=== PATIENT | female | born 1950 | race Caucasian/White ===

== ENCOUNTER → 2016-06-06 | Outpatient (CLI) | payer OTHER ==
[~2016-06-06] MED LIST: CIPR-255 PO; ERGO1TAB12 PO; GADAVIST IV PRN; IBUP-103 PO; LOSA25TA18 PO; OMEG10007 PO; RED1CAP5 PO
--- NOTE | 2016-06-06 09:40 | DIAGNOSTIC IMAGING REPORT ---
Brain MRA HISTORY: H93.A9 Pulsatile [id number] TECHNIQUE: 3-D [id number] MRA of the brain was performed without contrast. COMPARISON STUDY: None. FINDINGS: Visualized intracranial internal carotid arteries, distal vertebral arteries, and basilar artery are widely patent. There is no significant stenosis, occlusion, or aneurysm seen within the bilateral ACAs, MCAs, or recycling worker. The distal right vertebral artery is slightly hypoplastic and terminates in the right posterior inferior cerebellar artery. Hypoplastic left P1 segment. The left REGULATORY AFFAIRS INTERN is fed primarily through the left posterior communicating artery. The right A1 segment is also absent. The right CRICKET is fed through the anterior communicating artery. IMPRESSION: No significant stenosis, occlusion, or aneurysm within the quechan of [place]. Electronically signed by: Jose David Perry M.D. 06/06/2016 9:38 AM Dictated Date/Time: 06/06/2016 9:24 AM
--- NOTE | 2016-06-06 10:06 | DIAGNOSTIC IMAGING REPORT ---
MRI OF THE BRAIN COMBO INTERNAL AUDITORY CANAL PROTOCOL CLINICAL HISTORY: Pulsatile tinnitus. COMPARISON STUDY: CT of the brain dated 10/26/2012. TECHNIQUE: MRI of the brain was performed utilizing various T1 and T2-weighted sequences in the axial, sagittal, and coronal planes. Contrast-enhanced sequences were acquired following the administration of 7.5 cc of Gadavist. Additional high-resolution imaging was performed through the skull base both pre and post contrast to assess the internal auditory canals. FINDINGS: Brain parenchyma: There is minimal patchy subcortical and periventricular microangiopathic change. The brain parenchyma is otherwise normal in appearance. There is no hemorrhage or mass effect. There is no restricted diffusion to suggest acute ischemia. No enhancing mass lesion is identified on the postcontrast images. Kirby-white matter differentiation is preserved. No extra-axial fluid collection is seen. The cerebellar tonsils are normal in configuration. Ventricles, sulci, and cisterns: Normal in configuration. Internal auditory canals: There is no enhancing mass lesion identified within the cerebellopontine angles. No mass lesion or abnormal enhancement is identified along the course of the internal auditory canals. The middle ear structures are normal as visualized. Pituitary and sella: Unremarkable. Intracranial vasculature: Normal flow voids are maintained at the skull base. Orbits: The bony orbits are grossly intact. Orbital contents are normal in appearance. Sinuses and mastoids: There is a retention cyst in the right maxillary antrum. Trace mucosal thickening is noted in the maxillary antra. Remaining paranasal sinuses and the mastoid air cells are clear. Calvarium: Unremarkable. Cervical cord: Partially visualized cervical spinal cord is normal in morphology and signal intensity. IMPRESSION: 1. No acute intracranial abnormal. 2. Unremarkable MRI assessment of the internal auditory canals. Electronically signed by: Tim Berry M.D. 06/06/2016 10:05 AM Dictated Date/Time: 06/06/2016 9:54 AM
--- NOTE | 2016-06-06 10:45 | DIAGNOSTIC IMAGING REPORT ---
ULTRASOUND OF THE CAROTID ARTERIES CLINICAL HISTORY: Pulsatile tinnitus. COMPARISON STUDY: No priors. TECHNIQUE: Real-time, grayscale, and color Doppler sonography of the carotid arteries is performed. Images are reviewed in the transverse and longitudinal planes. FINDINGS: Blood pressure in the right arm measures 139/70 and blood pressure in the left arm measures 142/62. The carotid arteries are patent bilaterally and demonstrate antegrade flow. There is no significant atherosclerotic plaque identified. Normal doppler arterial waveforms are seen throughout. Velocity measurements are listed below. Common carotid peak systolic velocity (cm/sec): RIGHT: 89 LEFT: 85 ICA proximal peak systolic velocity (cm/sec): RIGHT: 58 LEFT: 70 ICA mid peak systolic velocity (cm/sec): RIGHT: 87 LEFT: 86 ICA distal peak systolic velocity (cm/sec): RIGHT: 74 LEFT: 62 ICA/CC peak systolic ratio: RIGHT: 0.9 LEFT: 1.0 Antegrade flow was shown in the vertebral arteries. The external carotid arteries are patent. Bilateral thyroid nodules are identified the largest in the left lobe measures up to 1.5 cm. This appears to contain small calcifications. IMPRESSION: 1. There is no sonographic evidence of hemodynamically significant stenosis in the right or left carotid arterial system. 2. Antegrade flow is shown in the vertebral arteries. 3. There is a 1.5 cm left thyroid nodule which appears to contain small calcifications. This meets sonographic criteria for fine-needle aspiration. Electronically signed by: Tim Berry M.D. 06/06/2016 10:43 AM Dictated Date/Time: 06/06/2016 10:40 AM
== END | disposition home or self-care (01) ==
LOC: C.MRI 08:31
PROVIDERS: ATTEND Hospitalist
DX: H93.A9 Pulsatile tinnitus, unspecified ear (principal); E04.1 Nontoxic single thyroid nodule

== ENCOUNTER → 2016-07-04 | Outpatient (CLI) | payer OTHER ==
[~2016-07-04] MED LIST changes: -GADAVIST IV PRN
--- NOTE | 2016-07-04 10:22 | Discharge Instructions ---
Discharge Instructions Procedure Procedure Date: Jul 04, 2016. Reason for visit: Thyroid Nodule *Requesting Dr Richards. Discharge Discharge Date: Jul 04, 2016. Discharge Diagnosis: s/p thyroid nodule FNA Instructions Activity Recommendations: No limitations Return to School/Work: no limitations Recommended Home Diet: No Limitations Provider Instructions: ACTIVITY RECOMMENDATIONS: * Rest today. * Resume regular activity in one day. MEDICATIONS: * May take Tylenol or Ibuprofen as needed for pain. DIET: * Resume previous diet. SPECIAL CARE INSTRUCTIONS: Call your doctor if: * Temperature above 101 degrees F. * Pain not relieved by pain medicine ordered. * Increased drainage or redness from incision. * Notify your doctor with any questions or concerns. Call your doctor or go to the nearest Emergency Department if you experience: * Increased chest pain or shortness of breath. FOLLOW UP VISIT: Follow-up with Referring Physician as scheduled. Allergies Coded Allergies: No Known Allergies (Verified , 04/19/16) April Marques Recommendations: Call your doctor if: * Temperature above 101 degrees * Pain not relieved by pain medicine ordered * There is increased drainage or redness from any incision * You have any unanswered questions or concerns. Your Doctors Instructions noted above were prepared by provider Jai Richards. Patient Signature Section: Patient Instructions Signature Page Ermelinda Christianson Patient (or Guardian) Signature/Date: I have read and understand the instructions given to me by my caregivers. Caregiver/RN/Doctor Signature/Date: The above-named patient and/or guardian has received patient instructions on this date. + Original Patient Signature Page (only) stays with chart. Please make copy for patient.
--- NOTE | 2016-07-04 10:32 | DIAGNOSTIC IMAGING REPORT ---
ULTRASOUND GUIDED FINE NEEDLE ASPIRATION OF LEFT LOBE THYROID NODULE CLINICAL HISTORY: Thyroid nodule. COMPARISON STUDY: Carotid ultrasound June 06, 2016. PROCEDURE: The procedure, risks and benefits were discussed with the patient and informed written consent was obtained. The procedure was performed by Dr. Richards following a timeout. Sonography of the thyroid gland again demonstrated the 1.5 cm hypoechoic left lobe nodule which contained multiple calcifications. Skin overlying this nodule was prepped and draped in sterile fashion and local anesthesia was achieved with 1% lidocaine. Under direct ultrasound guidance, 3 25-gauge fine needle aspirations of the nodule were performed. The samples were deemed preliminarily adequate by pathology. The patient tolerated the procedure well and no immediate complications were evident. IMPRESSION: Ultrasound guided fine needle aspiration of 1.5 cm left lobe thyroid nodule. Electronically signed by: Jai Richards M.D. 07/04/2016 10:31 AM Dictated Date/Time: 07/04/2016 10:29 AM
== END | disposition home or self-care (01) ==
LOC: C.ULTR 09:27
DX: E04.1 Nontoxic single thyroid nodule (principal)

== ENCOUNTER → 2016-07-23 | Outpatient (CLI) | payer OTHER ==
--- NOTE | 2016-07-24 12:34 | MAMMOGRAPHY REPORT ---
BILATERAL DIGITAL SCREENING MAMMOGRAM TOMOSYNTHESIS WITH CAD: 07/23/2016 CLINICAL HISTORY: Routine screening. Patient has no complaints. TECHNIQUE: Breast tomosynthesis in addition to standard 2D mammography was performed. Current study was also evaluated with a Computer Aided Detection (CAD) system. COMPARISON: Comparison is made to exams dated: 07/11/2015 mammogram, 06/17/2014 mammogram, 05/13/2013 mammogram, 05/08/2012 mammogram, 04/22/2011 mammogram, and 04/18/2010 mammogram - [facility]. BREAST COMPOSITION: The tissue of both breasts is heterogeneously dense, which may obscure small ma sses. FINDINGS: There are mild vascular calcifications in both breasts. There is a stable grouping of pu nctate microcalcifications in the lower inner right breast that is unchanged mammographically dating back to at least 08/11/2006, therefore likely benign. No suspicious mass, architectural distortion or cluster of microcalcifications is seen. IMPRESSION: ACR BI-RADS CATEGORY 2: BENIGN There is no mammographic evidence of malignancy. A 1 year screening mammogram is recommended. The p atient will receive written notification of the results. Approximately 10% of breast cancers are not detected with mammography. A negative mammographic repor t should not delay biopsy if a clinically suggestive mass is present. Vee Jeong M.D. ay/:07/23/2016 16:39:52 Splicing Machine Operator: Roxie VILLASENOR)([place]), [facility] letter sent: Normal 1/2 BI-RADS Code: ACR BI-RADS Category 2: Benign
== END | disposition home or self-care (01) ==
LOC: C.MAMM 13:17
PROVIDERS: ATTEND Nurse Practitioner
DX: Z12.31 Encounter for screening mammogram for malignant neoplasm of breast (principal)

== ENCOUNTER → 2016-08-28 | Outpatient (CLI) | payer OTHER ==
[~2016-08-28] MED LIST changes: -CIPR-255 PO; -IBUP-103 PO
[2016-08-28 13:51] LABS: ALT/SGPT 49 U/L (12-78); AST/SGOT 24 U/L (15-37); BLOOD UREA NITROGEN 10 mg/dl (7-18); BUN/CREATININE RATIO 13.7 (10-20); CALCIUM 9.3 mg/dl (8.5-10.1); CARBON DIOXIDE 30 mmol/L (21-32); CHLORIDE 106 mmol/L (98-107); CREATININE 0.76 mg/dl (0.60-1.20); GLUCOSE 99 mg/dl (70-99); MAGNESIUM 2.5 mg/dl (1.8-2.4); POTASSIUM 3.7 mmol/L (3.5-5.1); SODIUM 141 mmol/L (136-145)
[2016-08-28 13:54] LABS: CALCIUM URINE 5.6 mg/dl
[2016-08-28 14:03] LABS: ALB/GLOB RATIO 1.4 (0.9-2); ALKALINE PHOSPHATASE 61 U/L (45-117)
[2016-08-30 15:22] LABS: ALBUMIN 4.6 G/DL (3.8-4.8); GAMMA GLOBULIN 0.8 G/DL (0.8-1.7); TOTAL PROTEIN 6.8 G/DL (6.2-8.3)
== END | disposition home or self-care (01) ==
LOC: C.LAB1850 11:34
PROVIDERS: ATTEND Internal Medicine Endocrinology, Diabetes & Metabolism
DX: M85.80 Other specified disorders of bone density and structure, unspecified site (principal); E04.1 Nontoxic single thyroid nodule

== ENCOUNTER 2016-09-11 10:51 | Inpatient (IN) | payer OTHER ==
[2016-07-23 09:35] VITALS: BMI 24.0
[2016-07-23 10:32] LABS: BASO % 0.2 %; BASO ABS # 0.01 K/uL (0-0.2); COMPLETE YES; EOS % 2.7 %; HEMATOCRIT 42.1 % (37-47); LYMPH % 29.4 %; LYMPH ABS # 1.32 K/uL (1.2-3.4); MEAN CELL VOLUME 92.9 fL (80-100); MEAN CORPUSCULAR HGB CONC 34.4 g/dl (32-36); MEAN PLATELET VOLUME 10.5 fL (7.4-10.4); MONO % 7.1 %; NEUT % 60.6 %; PLATELET COUNT 255 K/uL (130-400); RED BLOOD COUNT 4.53 M/uL (4.2-5.4); WHITE BLOOD COUNT 4.49 K/uL (4.8-10.8)
--- NOTE | 2016-07-23 10:39 | PAT Medication Instructions ---
Service Date Jul 23, 2016. Current Home Medication List Ergocalciferol (Vitamin D2), 2,000 MG PO QAM Fish Oil ([place]raw-3), 1 CAP PO QAM Losartan Potassium (Cozaar), 25 MG PO QAM Red Yeast Rice Extract (Red Yeast Rice), 1 TAB PO QAM Medication Instructions For Your Scheduled Surgery - Hold the following medications 2 weeks prior to surgery: Red Yeast Rice Extract (Red Yeast Rice), 1 TAB PO QAM Fish Oil ([place]raw-3), 1 CAP PO QAM - Hold the following medications the morning of surgery: Losartan Potassium (Cozaar), 25 MG PO QAM Ergocalciferol (Vitamin D2), 2,000 MG PO QAM If you have any questions please call us at [phone] (Yolis Whitt PA-C) or [phone] or [phone]
[2016-07-23 10:59] LABS: BUN/CREATININE RATIO 20.3 (10-20); CALCIUM 9.5 mg/dl (8.5-10.1); CREATININE 0.71 mg/dl (0.60-1.20); POTASSIUM 4.2 mmol/L (3.5-5.1)
[~2016-09-11] VITALS: Ht 175.3 cm; Wt 74.7 kg
[~2016-09-11 10:51] MED LIST changes: +ACETAMINOPHEN 1000 MG/100 ML IV IV ONE; +CEFAZOLIN 2000 MG/60 ML D5W IV SCH; +LACTATED RINGER'S 1000ML 1,000 ML IV SCH
[2016-09-11 11:26] VITALS: BP 143/70; PULSE 55; TEMP 36.7; O2SAT 99; Ht 175.3 cm; Wt 74.7 kg
[2016-09-11] MEDS ORDERED: FENTANYL CITRATE INJ 50 MCG/1 ML 2 ML VIAL ONE ×2 (12:23→15:29)
[2016-09-11] MEDS ORDERED: PROPOFOL IV EMULSION 10 MG/ML 20 ML VIAL IV ONE (12:23)
[2016-09-11] MEDS ORDERED: ONDANSETRON INJ 2 MG/ML 2 ML VIAL ONE (12:23)
[2016-09-11] MEDS ORDERED: DEXAMETHASONE SOD INJ 4 MG/ML VIAL ONE (12:23)
[2016-09-11] MEDS ORDERED: MIDAZOLAM HCL 1 MG/ML 2ML VIAL ONE (12:23)
[2016-09-11] MEDS ORDERED: ROCURONIUM BROMIDE 10 MG/ML 5 ML VIAL ONE (12:23)
[2016-09-11] MEDS ORDERED: SUCCINYLCHOLINE CHLORIDE 20 MG/ML 10 ML VIAL IV ONE (12:23)
[2016-09-11] MEDS ORDERED: LIDOCAINE HCL 2% 2 ML VIAL (20MG/ML) ONE (12:23)
--- NOTE | 2016-09-11 13:22 | History & Physical Bridge Note ---
H&P Re-Evaluation Bridge Note: I have examined the patient, reviewed the History & Physical and in the interval since the performance of the History & Physical I have noted the following changes of clinical significance: No changes noted
--- NOTE | 2016-09-11 14:00 | History and Physical ---
History & Physical Date Sep 11, 2016. Chief Complaint PAPILLARY THYROID CANCER History of Present Illness The patient is a 65 year old female with complaints of 1.5CM L THYROID NODULE WITH FNA SHOWING PTC. SHE HAD XRT TO NECK CHILD FOR THYMUS ENLARGEMENT. Past Medical/Surgical History Medical Problems: (1) Biopsy of breast (2) Cardiomyopathy (3) Hysterectomy OSTEOPOROSIS [facility] VITAMIN D DEFICIENCY Additional History Hepatic Disease: No Endocrine Disorder: No Kidney Disease: No Hypertension: No Heart Disease: No Bleeding Tendencies: No Infectious Diseases: No Allergies Coded Allergies: Lisinopril (Verified Adverse Reaction, [facility] [place], 09/11/16) Home Medications Scheduled Ergocalciferol (Vitamin D2), 2,000 MG PO QAM Fish Oil ([place]-3), 1 CAP PO QAM Losartan Potassium (Cozaar), 25 MG PO QAM Red Yeast Rice Extract (Red Yeast Rice), 1 TAB PO QAM Physical Examination Skin: warm/dry, no rash Eyes: normal inspection, EOMI, sclerae normal ENT: normal ENT inspection, pharynx normal Head: normocephalic, atraumatic Neck: supple, no adenopathy, trachea midline Respiratory/Chest: lungs clear, normal breath sounds, no respiratory distress Cardiovascular: regular rate, rhythm, no edema, no murmur Neurologic/Psych: no motor/sensory deficits, alert, normal reflexes, oriented x 3 Diagnosis L THYROID PTC Plan of Treatment TOTAL THYROIDECTOMY
[2016-09-11] MEDS ORDERED: LIDOCAINE/EPINEPHRINE 1% 20 ML VIAL ONE (14:06)
[2016-09-11] MEDS ORDERED: BACITRACIN OINT 15 GM TUBE ONE (14:06)
[2016-09-11] MEDS ORDERED: THROMBIN 5000 UNITS KIT ONE (14:06)
[2016-09-11] MEDS ORDERED: EpHEDrine SULFATE 50MG/5ML SYR ONE (14:43)
[2016-09-11] MEDS ORDERED: SURGICEL ABSORB HEMOSTAT 2IN X 14IN TOP ONE (15:45)
--- NOTE | 2016-09-11 15:47 | [facility] Operative Report ---
Operative Report Operative Date Sep 11, 2016. Pre-Operative Diagnosis Papillary Thyroid Cancer Post-Operative Diagnosis SAME Procedure(s) Performed TOTAL THYROIDECTOMY Surgeon Dr. Mino Iraheta Home Restoration Service Cleaner Surgeon(s) Lyubov Freeman PA-C Estimated Blood Loss 15 cc Findings VERY FIRM 1.5CM L SUPERIOR POLE NODULE AND ~3MM PURPLISH BLACK R SUPERIOR POLE NODULE Specimens A:Total Thyroidectomy; double stitch right superior lobe, single stitch left superior lobe I attest to the content of the Intraoperative Record and any orders documented therein. Any exceptions are noted below.
--- NOTE | 2016-09-11 15:53 | Discharge Instructions ---
Discharge Instructions Date of Service Sep 11, 2016. Admission Reason for Admission: Thyroid Nodule, Thyroid Cancer Discharge Discharge Diagnosis / Problem: SAME Discharge Goals Goal(s): Therapeutic intervention Activity Recommendations Activity Limitations: as noted below LIGHT ACTIVITY FOR 2 WEEKS; NO DRIVING WHILE ON [place] . Current Hospital Diet Patient's current hospital diet: Discharge Diet Recommended Diet: Regular Diet Procedures Procedures Performed: Total Thyroidectomy Pending Studies Studies pending at discharge: no Medical Emergencies . Who to Call and When: Medical Emergencies: If at any time you feel your situation is an emergency, please call 911 immediately. . Non-Emergent Contact Non-Emergency issues call your: Surgeon . . "Provider Documentation" section prepared by Mino Iraheta. . VTE Core Measure Inpt VTE Proph given/why not?: SCD's
[2016-09-11] MEDS ORDERED: ONDANSETRON INJ 2 MG/ML 2 ML VIAL IV PRN ×2 (16:00→16:45)
[2016-09-11] MEDS ORDERED: EpHEDrine SULFATE INJ 50 MG/ML AMP IV PRN (16:45)
[2016-09-11] MEDS ORDERED: ATROPINE SULFATE 0.1 MG/ML 5ML SYR IV PRN (16:45)
[2016-09-11] MEDS ORDERED: PROMETHAZINE HCL INJ 12.5 MG in SODIUM CHLORIDE 0.9% 50ML 50 ML IV PRN (16:45)
[2016-09-11] MEDS ORDERED: NALOXONE HCL 0.4 MG/1 ML VIAL/CARP IV PRN (16:45)
[2016-09-11] MEDS ORDERED: LABETALOL HCL IV 5 MG/ML 20ML IV PRN (16:45)
[2016-09-11] MEDS ORDERED: FENTANYL CITRATE INJ 50 MCG/1 ML 2 ML VIAL IV PRN (16:45)
--- NOTE | 2016-09-11 16:45 | OPERATIVE REPORT ---
DATE OF OPERATION: 09/11/2016 PREOPERATIVE DIAGNOSIS: Left papillary thyroid carcinoma. POSTOPERATIVE DIAGNOSIS: Left papillary thyroid carcinoma. PROCEDURE: Total thyroidectomy. SURGEON: Dr. Iraheta. ANESTHESIA: General endotracheal with nerve integrity monitor endotracheal tube. ESTIMATED BLOOD LOSS: 15 mL. FINDINGS: 1. Very firm 1.5-cm left superior pole nodule. 2. Approximately 5-mm purplish black right superior pole nodule. SPECIMENS: Total thyroidectomy for permanent pathological assessment. DRAINS: None. COMPLICATIONS: None. INDICATIONS: The patient is a 65-year-old female with a 1.5-cm left thyroid nodule for which a fine needle aspiration biopsy was suspicious for papillary thyroid carcinoma. She presents for the above-mentioned procedure on an inpatient elective basis. DESCRIPTION OF PROCEDURE: After informed consent had been obtained from the patient, the patient was wheeled to the operating room and placed on the operating table in supine position. Monitors were placed. After induction of general endotracheal anesthesia with a nerve integrity monitor endotracheal tube, the patient's head and neck were gently extended and a marking pen was used to outline the planned 6-cm incision in a natural skin crease 2 fingerbreadths above the level of the clavicles. A total of 3 mL of 1% lidocaine with 1:100,000 epinephrine was then used to inject the skin and subcutaneous tissues overlying the planned incision site. The skin in the neck and chest were then prepped and draped in the usual sterile fashion. A #15 scalpel was then used to make the incision through the skin, subcutaneous tissue, and platysma. Subplatysmal flaps were raised superiorly to the level of the thyroid notch and inferiorly to the level of the clavicles. The median rhaphe of the strap muscles was divided using Bovie electrocautery. The strap muscles were retracted laterally and the right thyroid lobe was first addressed. The middle thyroid vein as well as superior and inferior thyroid vascular pedicles were divided adjacent to the thyroid capsule using Harmonic scalpel. Dissection was carried lateral to medial with care to identify the right recurrent laryngeal nerve as well as superior and inferior parathyroid candidates. The left side was then addressed in a similar fashion. The thyroid gland was then from the trachea at Gamboa's ligament using a Harmonic scalpel. Intraoperative findings were of a very firm left superior pole thyroid nodule measured approximately 1.5 cm as well as a purplish black approximately 5-mm right superior pole nodule. Orienting sutures were placed on the total thyroidectomy specimen, which was sent off for permanent pathological assessment. The wound was copiously irrigated and suctioned. Bipolar electrocautery was used to achieve adequate hemostasis. Hemostasis was confirmed with a Valsalva maneuver. Small pieces of Surgicel followed by topical spray thrombin were placed in the bilateral tracheoesophageal grooves for added hemostatic effect. The strap muscles were then reapproximated in midline using a simple running interlocked 3-0 Vicryl suture. The platysma was then closed with several deep 4-0 Monocryl sutures. The skin was then closed with a simple running subcuticular 5-0 Monocryl suture. The incision was cleansed and dried. Dermabond was applied to the incision. This marked the end of the case. The patient tolerated the procedure well. There were no apparent complications. The patient was extubated and transferred to recovery room in stable condition. I attest to the content of the Intraoperative Record and any orders documented therein. Any exceptio ns are noted below.
--- NOTE | 2016-09-11 16:55 | Anesthesiology Progress Note ---
Anesthesia Post Op Note Date & Time Sep 11, 2016 at 16:54 Vital Signs Pain Intensity: 0 Vital Signs Past 12 Hours Date Time Temp Pulse Resp B/P Pulse Ox O2 Delivery O2 Flow Rate FiO2 09/11/16 16:50 36.4 69 16 142/71 99 Nasal Cannula 3 09/11/16 16:40 69 16 145/78 100 Nasal Cannula 3 09/11/16 16:30 80 16 145/70 100 Mask 5 09/11/16 16:20 87 16 144/71 100 Mask 10 09/11/16 16:14 36.5 83 12 139/69 99 Mask 10 09/11/16 11:26 36.7 55 18 143/70 99 Room Air Notes Mental Status: alert / awake / arousable, participated in evaluation Pt Amnestic to Procedure: Yes Nausea / Vomiting: adequately controlled Pain: adequately controlled Airway Patency, RR, SpO2: stable & adequate BP & HR: stable & adequate Hydration State: stable & adequate Anesthetic Complications: no major complications apparent
[2016-09-11 17:00] VITALS: BP 147/76; PULSE 69; TEMP 37.1; O2SAT 96
[2016-09-11 17:30] VITALS: BP 146/77; PULSE 64; TEMP 36.4; O2SAT 98
[2016-09-11] MEDS: HYDROCODONE/ACETAMOPHEN 5/325MG TAB PO PRN ×2 (17:30→21:58)
[2016-09-11 17:59] VITALS: BP 154/76; PULSE 74; TEMP 37.2; O2SAT 95
[2016-09-11 19:13] VITALS: BP 155/75; PULSE 67; TEMP 36.3; O2SAT 98
[2016-09-11] MEDS: LACTATED RINGER'S 1000ML 1,000 ML IV SCH (19:34)
[2016-09-11 20:09] VITALS: BP 148/81; PULSE 76; TEMP 36.8; O2SAT 95
[2016-09-11 22:02] LABS: CALCIUM 8.9 mg/dl (8.5-10.1); MAGNESIUM 2.1 mg/dl (1.8-2.4); PHOSPHORUS 2.7 mg/dl (2.5-4.9)
[2016-09-12 00:20] VITALS: BP 127/71; PULSE 77; TEMP 36.9; O2SAT 98
[2016-09-12 03:22] LABS: CALCIUM 8.7 mg/dl (8.5-10.1); MAGNESIUM 2.3 mg/dl (1.8-2.4); PHOSPHORUS 3.1 mg/dl (2.5-4.9)
[2016-09-12] MEDS: LACTATED RINGER'S 1000ML 1,000 ML IV SCH (03:31)
[2016-09-12 04:18] VITALS: BP 115/62; PULSE 63; TEMP 37; O2SAT 97
[2016-09-12] MEDS ORDERED: LEVOTHYROXINE 112 MCG TAB PO SCH (06:00)
[2016-09-12] MEDS ORDERED: ACETAMINOPHEN 500 MG TAB PO PRN (06:15)
--- NOTE | 2016-09-12 07:13 | ENT PROGRESS NOTE ---
DATE: 09/12/2016 The patient is postoperative day #1 status post total thyroidectomy for left-sided papillary thyroid carcinoma. She has done well postoperatively thus far. She denies any numbness or tingling around her lips, fingers, or toes, or any involuntary muscle spasms or cramps. So far, her laboratory examinations have been unremarkable. Her calcium is normal this morning at 8.7. She is afebrile and her vital signs are stable. Her voice is normal. Her incision is clean, dry and intact, with no evidence of hematoma. I would like to check her laboratory examinations one more time before considering discharge. These are scheduled for 9:00 a.m. As long as those labs are stable, I will discharge her to home on new medications of [place] and Synthroid. Follow up in the office next Friday.
[2016-09-12 07:30] VITALS: BP 117/75; PULSE 66; TEMP 36.8; O2SAT 99
--- NOTE | 2016-09-12 08:12 | Anesthesiology Progress Note ---
Anesthesia Post Op Note Date & Time Sep 12, 2016 at 08:11 Vital Signs Pain Intensity: 5.0 Vital Signs Past 12 Hours Date Time Temp Pulse Resp B/P Pulse Ox O2 Delivery O2 Flow Rate FiO2 09/12/16 07:30 36.8 66 18 117/75 99 Room Air 09/12/16 04:18 37.0 63 18 115/62 97 Room Air 09/12/16 00:20 36.9 77 18 127/71 98 Room Air 09/12/16 00:05 Room Air Notes Mental Status: alert / awake / arousable, participated in evaluation Pt Amnestic to Procedure: Yes Nausea / Vomiting: adequately controlled Pain: adequately controlled Airway Patency, RR, SpO2: stable & adequate BP & HR: stable & adequate Hydration State: stable & adequate Anesthetic Complications: no major complications apparent
[2016-09-12] MEDS ORDERED: LOSARTAN POTASSIUM 25 MG TAB PO SCH (09:00)
[2016-09-12] MEDS ORDERED: CHOLECALCIFEROL 1000 INTER.UNIT TAB PO SCH (09:00)
[2016-09-12 09:50] LABS: CALCIUM 9.1 mg/dl (8.5-10.1)
[2016-09-12 10:05] LABS: MAGNESIUM 2.4 mg/dl (1.8-2.4); PHOSPHORUS 2.6 mg/dl (2.5-4.9)
--- NOTE | 2016-09-12 10:11 | DISCHARGE SUMMARY ---
HOSPITAL COURSE: The patient is a 65-year-old female with a 1.5 cm left thyroid nodule for which a fine needle aspiration biopsy was suspicious for papillary thyroid carcinoma who presented for total thyroidectomy on 09/11/2016 with intraoperative findings of a very firm left superior pole 1.5 cm thyroid nodule as well as a suspicious 5 mm purplish-black white superior pole thyroid nodule. She had no postoperative problems. Her postoperative calcium levels were within normal limits. She had a normal voice and normal swallowing postoperatively. She was discharged to home on postoperative day 1 on [place] 5 mg/325 mg 1-2 tablets every four hours p.r.n. for pain with 40 tablets given as well as Synthroid 112 mcg daily. She is to followup in my office next Friday. She should keep her incision dry until the followup appointment. She is to call my office if she develops any numbness or tingling around her lips, fingers, or toes and/or any involuntary muscle spasms or cramps.
[2016-09-12 10:25] VITALS: BP 117/75; PULSE 66; TEMP 36.8; O2SAT 99
== END 2016-09-12 11:34 | disposition home or self-care (01) | DRG 626 ==
LOC: ENRESERVTM → ENRESERVDT → C.ACU 10:51 → C.MSW 13:15
PROC: 0GTK0ZZ Resection of Thyroid Gland, Open Approach (ICD-10-PCS; principal; 2016-09-11 12:15)
DX: C73 Malignant neoplasm of thyroid gland (principal); I42.9 Cardiomyopathy, unspecified; M81.0 Age-related osteoporosis without current pathological fracture; E55.9 Vitamin D deficiency, unspecified

== ENCOUNTER → 2016-09-27 | Outpatient (CLI) | payer OTHER ==
[~2016-09-27] MED LIST changes: -ACETAMINOPHEN 1000 MG/100 ML IV IV ONE; -CEFAZOLIN 2000 MG/60 ML D5W IV SCH; -LACTATED RINGER'S 1000ML 1,000 ML IV SCH
[2016-09-27 14:56] LABS: THYROID STIMULATING HORMONE 0.115 uIu/ml (0.300-4.500)
== END | disposition home or self-care (01) ==
LOC: C.LAB1850 12:39
PROVIDERS: ATTEND Internal Medicine Endocrinology, Diabetes & Metabolism
DX: C73 Malignant neoplasm of thyroid gland (principal)

== ENCOUNTER → 2016-11-22 | Outpatient (CLI) | payer OTHER ==
[2016-11-22 13:07] LABS: CHOLESTEROL/HDL RATIO 3.7
[2016-11-22 13:14] LABS: THYROID STIMULATING HORMONE 0.088 uIu/ml (0.300-4.500)
== END | disposition home or self-care (01) ==
LOC: C.LABPVFM 07:36
PROVIDERS: ATTEND Nurse Practitioner
DX: E78.5 Hyperlipidemia, unspecified (principal); C73 Malignant neoplasm of thyroid gland

== ENCOUNTER → 2016-12-17 | Outpatient (CLI) | payer OTHER | END | disposition home or self-care (01) | LOC: C.PAPS 12:42 | PROVIDERS: ATTEND Nurse Practitioner | DX: Z01.419 Encounter for gynecological examination (general) (routine) without abnormal findings (principal) ==

== ENCOUNTER → 2017-01-13 | Outpatient (CLI) | payer OTHER ==
--- NOTE | 2017-01-13 10:41 | DIAGNOSTIC IMAGING REPORT ---
LEFT ANKLE MIN 3 VIEWS ROUTINE CLINICAL HISTORY: Left ankle pain. Achilles bursitis. COMPARISON: None FINDINGS: Alignment of left ankle is anatomic. There is no fracture or suspicious lesion. Talar dome is intact. There is moderate posterior spurring of the calcaneus at the insertion of the Achilles. There is soft tissue thickening at the expected location of the distal Achilles. IMPRESSION: 1. Moderate posterior calcaneal spurring with associated soft tissue swelling. This may reflect Achilles tendinopathy with bursitis. 2. No acute fracture. Electronically signed by: Jai Richards M.D. 01/13/2017 10:39 AM Dictated Date/Time: 01/13/2017 10:37 AM
== END | disposition home or self-care (01) ==
LOC: C.RADPV 10:07
PROVIDERS: ATTEND Family Medicine
DX: M76.60 Achilles tendinitis, unspecified leg (principal)

== ENCOUNTER → 2017-01-28 | Outpatient (CLI) | payer OTHER ==
[2017-01-28 13:35] LABS: THYROID STIMULATING HORMONE 0.222 uIu/ml (0.300-4.500)
[2017-01-29 14:13] LABS: THYROGLOBULIN 0.4 NG/ML (2.8-40.9)
== END | disposition home or self-care (01) ==
LOC: C.LAB1850 10:46
PROVIDERS: ATTEND Internal Medicine Endocrinology, Diabetes & Metabolism
DX: C73 Malignant neoplasm of thyroid gland (principal); D49.7 Neoplasm of unspecified behavior of endocrine glands and other parts of nervous system

== ENCOUNTER → 2017-06-26 | Outpatient (CLI) | payer OTHER ==
[2017-06-26 12:23] LABS: BASO % 0.2 %; BASO ABS # 0.01 K/uL (0-0.2); EOS % 2.7 %; EOS ABS # 0.14 K/uL (0-0.5); HEMATOCRIT 40.7 % (37-47); HEMOGLOBIN 14.1 g/dL (12.0-16.0); IG# 0.01 K/uL (0.00-0.02); LYMPH % 33.9 %; LYMPH ABS # 1.78 K/uL (1.2-3.4); MEAN CELL VOLUME 93.1 fL (80-100); MEAN CORPUSCULAR HEMOGLOBIN 32.3 pg (25-34); MEAN CORPUSCULAR HGB CONC 34.6 g/dl (32-36); MEAN PLATELET VOLUME 10.6 fL (7.4-10.4); MONO % 8.8 %; MONO ABS # 0.46 K/uL (0.11-0.59); NEUT % 54.2 %; NEUT ABS # 2.85 K/uL (1.4-6.5); PLATELET COUNT 255 K/uL (130-400); RED CELL DISTRIBUTION WIDTH CV 12.3 % (11.5-14.5); RED CELL DISTRIBUTION WIDTH SD 42.1 fL (36.4-46.3); WHITE BLOOD COUNT 5.25 K/uL (4.8-10.8)
[2017-06-26 12:36] LABS: PTT PATIENT 28.2 SECONDS (21.0-31.0)
== END | disposition home or self-care (01) ==
LOC: C.LABPVFM 10:08
PROVIDERS: ATTEND Family Medicine
DX: K92.2 Gastrointestinal hemorrhage, unspecified (principal)

== ENCOUNTER → 2017-06-26 | Outpatient (CLI) | payer OTHER ==
[~2017-06-26] MED LIST changes: +CALCIUM CARBONATE PO; +CHOL2000 PO; +LEVO112T4 PO; +PROP1TAB PO; +RED YEAST RICE PO
== END | disposition home or self-care (01) ==
LOC: C.LABPVFM 16:15
PROVIDERS: ATTEND Family Medicine
DX: K92.2 Gastrointestinal hemorrhage, unspecified (principal)

== ENCOUNTER → 2017-07-21 | Day surgery (SDC) | payer OTHER ==
[2017-07-11 07:46] VITALS: Ht 172.7 cm; Wt 74.5 kg
[~2017-07-21] VITALS: Ht 172.7 cm; Wt 74.5 kg
[~2017-07-21] MED LIST changes: -ERGO1TAB12 PO; +LIDOCAINE HCL 2% 2 ML VIAL (20MG/ML) ONE; +MIDAZOLAM HCL 1 MG/ML 2ML VIAL ONE; -OMEG10007 PO; +PROPOFOL IV EMULSION 10 MG/ML 20 ML VIAL IV ONE; -RED1CAP5 PO; +SODIUM CHLORIDE 0.9% 500ML 500 ML IV ONE
--- NOTE | 2017-07-21 09:35 | Endo History and Physical ---
History & Physical Date of Service: Jul 21, 2017. Chief Complaint: rectal bleeding Referring Physician: Dr. Mary Jackman History of Present Illness 66 yo CF who presents for colonoscopy secondary to rectal bleeding. Past Surgical History Hx Cardiac Surgery: No Hx Internal Defibrillator: No Hx Pacemaker: No Hx Abdominal Surgery: Yes (HYSTERECTOMY, LEFT BREAST LUMPECTOMY (BENIGN)) Hx of Implantable Prosthesis: No Hx Post-Op Nausea and Vomiting: No Hx Cancer Surgery: Yes (TOTAL THYROIDECTOMY) Hx Thoracic Surgery: No Hx Orthopedic: No Hx Urinary Tract Surgery: No Family History Colon CA Social History Smoking Status: Former Smoker Hx Substance Use: No Hx Alcohol Use: Yes (OCCASIONALLY) Allergies Coded Allergies: Lisinopril (Verified Adverse Reaction, Intermediate, cough, 07/21/17) Current Medications Reported Home Medications Medications Dose Route/Sig Max Daily Dose Days Date Category [Red Yeast Rice] 1 Cap PO QAM 07/11/17 Reported [Calcium Carbonate] 1,000 Mg PO 3XWK 07/11/17 Reported Vitamin D3 (Cholecalciferol) 2,000 Unit Cap 2 Cap PO QAM 07/11/17 Reported Inderal (Propranolol HCl) 60 Mg Tab 60 Mg PO QAM 07/11/17 Reported Levothyroxine Sodium 112 Mcg Tab 1 Tab PO QAM 07/11/17 Reported Cozaar (Losartan Potassium) 25 Mg Tab 25 Mg PO QAM 10/26/12 Reported Vital Signs Weight (Kilograms): 74.55 Height (Feet): 5 Height (Inches): 8 Date Time Temp Pulse Resp B/P (MAP) Pulse Ox O2 Delivery O2 Flow Rate FiO2 07/21/17 09:01 36.5 53 20 157/78 (104) 100 Room Air Physical Exam General Appearance: WD/WN, no apparent distress Respiratory/Chest: Auscultation: breath sounds normal Cardiovascular: Heart Auscultation: RRR Abdomen: Bowel Sounds: normal Inspection & Palpation: soft, non-distended, no tenderness, guarding & rebound Assessment and Plan Assessment: 66 yo CF who presents for colonoscopy secondary to rectal bleeding. Plan: Proceed with colonoscopy.
--- NOTE | 2017-07-21 10:11 | GI REPORT ---
Procedure Date: 07/21/2017 9:39 AM Procedure: Colonoscopy Indications: Rectal bleeding Medicines: Monitored Anesthesia Care Complications: No immediate complications. Estimated Blood Loss: Estimated blood loss: none. Procedure: Pre-Anesthesia Assessment: - Prior to the procedure, a History and Physical was performed, and patient medications and allergies were reviewed. The patient's tolerance of previous anesthesia was also reviewed. The risks and benefits of the procedure and the sedation options and risks were discussed with the patient. All questions were answered, and informed consent was obtained. Prior Anticoagulants: The patient has taken no previous anticoagulant or antiplatelet agents. ASA Grade Assessment: II - A patient with mild systemic disease. After reviewing the risks and benefits, the patient was deemed in satisfactory condition to undergo the procedure. After I obtained informed consent, the scope was passed under direct vision. Throughout the procedure, the patient's blood pressure, pulse, and oxygen saturations were monitored continuously. The scope was introduced through the anus and advanced to the terminal ileum. The colonoscopy was performed without difficulty. The patient tolerated the procedure well. The quality of the bowel preparation was good. The ileocecal valve, appendiceal orifice, and rectum were photographed. Findings: The perianal and digital rectal examinations were normal. A 4 mm polyp was found in the transverse colon. The polyp was sessile. The polyp was removed with a cold snare. Resection and retrieval were complete. A 5 mm polyp was found in the sigmoid colon. The polyp was sessile. The polyp was removed with a hot snare. Resection and retrieval were complete. Multiple small-mouthed diverticula were found in the sigmoid colon. Non-bleeding internal hemorrhoids were found during retroflexion. The hemorrhoids were small. Impression: - One 4 mm polyp in the transverse colon, removed with a cold snare. Resected and retrieved. - One 5 mm polyp in the sigmoid colon, removed with a hot snare. Resected and retrieved. - Diverticulosis in the sigmoid colon. - Non-bleeding internal hemorrhoids. Recommendation: - Resume previous diet. - Continue present medications. - Repeat colonoscopy for surveillance based on pathology results. - Return to primary care physician as previously scheduled. Dirk Baker DO 07/21/2017 10:11:33 AM This report has been signed electronically. Note Initiated On: 07/21/2017 9:39 AM I attest to the content of the Intraoperative Record and orders documented therein, exceptions below
--- NOTE | 2017-07-21 10:13 | Discharge Instructions ---
Endoscopy Patient Instructions Date / Procedure(s) Performed Jul 21, 2017. Colonoscopy Allergy Information Coded Allergies: Lisinopril (Verified Adverse Reaction, Intermediate, cough, 07/21/17) Discharge Date / Findings Jul 21, 2017. Colon polyps Diverticulosis Internal hemorrhoids Medication Instructions OK to resume all medications today as prescribed Reported Home Medications Medications Dose Route/Sig Max Daily Dose Days Date Category [Red Yeast Rice] 1 Cap PO QAM 07/11/17 Reported [Calcium Carbonate] 1,000 Mg PO 3XWK 07/11/17 Reported Vitamin D3 (Cholecalciferol) 2,000 Unit Cap 2 Cap PO QAM 07/11/17 Reported Inderal (Propranolol HCl) 60 Mg Tab 60 Mg PO QAM 07/11/17 Reported Levothyroxine Sodium 112 Mcg Tab 1 Tab PO QAM 07/11/17 Reported Cozaar (Losartan Potassium) 25 Mg Tab 25 Mg PO QAM 10/26/12 Reported Provider Instructions Activity Restrictions - No exercising or heavy lifting for 24 hours. - Do not drink alcohol the day of the procedure. - Do not drive a car or operate machinery until the day after the procedure. - Do not make any important decisions or sign important papers in 24 hours after the procedure. Following Day: - Return to full activity which may include returning to work/school. Diet Start your diet with liquids and light foods (jello, soup, juice, toast). Then eat your usual diet if not nauseated. Treatment For Common After Affects For mild abdominal pain, bloating, or excessive gas: - Rest - Eat lightly - Lie on right side Follow-Up Information Follow-up with Dr. Mary Jackman as scheduled Anesthesia Information What You Should Know You have had a procedure that required some medicine to reduce anxiety and discomfort. This treatment is called moderate sedation. After receiving the treatment, you may be sleepy, but you will be able to breathe on your own. The effects of the treatment may last for several hours. Follow these instructions along with Activity/Diet recommendations noted above: * Do NOT do anything where dizziness or clumsiness would be dangerous. * Rest quietly at home today, then you can be up and about tomorrow. * Have a responsible person stay with you the rest of today. * You may have had an I.V. today. If so, you may take the dressing off later today. Recommendations Call your doctor if: * Trouble breathing * Continuous vomiting for more than 24 hours * Temperature above 101 degrees * Severe abdominal pain or bloating * Pain not relieved by pain medicine ordered * There is increased drainage or redness from any incision * A large amount of rectal bleeding greater than 2-3 tablespoons. (If you had a polyp/s removed or have hemorrhoids, a small amount of blood - from the rectum is to be expected.) * You have any unanswered questions or concerns. IN THE EVENT OF A SERIOUS EMERGENCY, GO TO THE NEAREST EMERGENCY ROOM Your discharge instructions were prepared by provider Dirk Baker. Patient Instructions Signature Page Ermelinda Christianson Patient (or Guardian) Signature/Date: I have read and understand the instructions given to me by my caregivers. Caregiver/RN/Doctor Signature/Date: The above-named patient and/or guardian has received patient instructions on this date. + Original Patient Signature Page (only) stays with chart. Please make copy for patient.
[2017-07-21 10:39] VITALS: BP 168/75; PULSE 48; O2SAT 97
--- NOTE | 2017-07-21 11:06 | Anesthesiology Progress Note ---
Anesthesia Post Op Note Date & Time Jul 21, 2017 at 11:05 Vital Signs Pain Intensity: 1 Vital Signs Past 12 Hours Date Time Temp Pulse Resp B/P (MAP) Pulse Ox O2 Delivery O2 Flow Rate FiO2 07/21/17 10:39 48 20 168/75 (106) 97 Room Air 07/21/17 10:26 50 20 162/72 (102) 100 Room Air 07/21/17 10:11 57 16 127/69 (88) 100 Room Air 07/21/17 09:01 36.5 53 20 157/78 (104) 100 Room Air Notes Mental Status: alert / awake / arousable, participated in evaluation Pt Amnestic to Procedure: Yes Nausea / Vomiting: adequately controlled Pain: adequately controlled Airway Patency, RR, SpO2: stable & adequate BP & HR: stable & adequate Hydration State: stable & adequate Anesthetic Complications: no major complications apparent
== END | disposition home or self-care (01) ==
LOC: C.GI 08:34
PROVIDERS: ATTEND Internal Medicine
DX: K62.5 Hemorrhage of anus and rectum (principal); D12.3 Benign neoplasm of transverse colon; D12.5 Benign neoplasm of sigmoid colon; K57.30 Diverticulosis of large intestine without perforation or abscess without bleeding; K64.8 Other hemorrhoids; Z80.0 Family history of malignant neoplasm of digestive organs; Z87.891 Personal history of nicotine dependence; Z88.8 Allergy status to other drugs, medicaments and biological substances; Z79.899 Other long term (current) drug therapy

== ENCOUNTER → 2017-07-29 | Outpatient (CLI) | payer OTHER ==
[~2017-07-29] MED LIST changes: -LIDOCAINE HCL 2% 2 ML VIAL (20MG/ML) ONE; -MIDAZOLAM HCL 1 MG/ML 2ML VIAL ONE; -PROPOFOL IV EMULSION 10 MG/ML 20 ML VIAL IV ONE; -SODIUM CHLORIDE 0.9% 500ML 500 ML IV ONE
--- NOTE | 2017-07-29 15:15 | MAMMOGRAPHY REPORT ---
BILATERAL DIGITAL SCREENING MAMMOGRAM TOMOSYNTHESIS WITH CAD: 07/29/2017 CLINICAL HISTORY: Routine screening. Patient has no complaints. TECHNIQUE: Breast tomosynthesis in addition to standard 2D mammography was performed. Current study was also evaluated with a Computer Aided Detection (CAD) system. COMPARISON: Comparison is made to exams dated: 07/23/2016 mammogram, 07/11/2015 mammogram, 06/17/2014 m ammogram, 05/13/2013 mammogram, 05/08/2012 mammogram, and 04/22/2011 mammogram - [facility]. BREAST COMPOSITION: The tissue of both breasts is heterogeneously dense, which may obscure small mas ses. FINDINGS: No new suspicious mass, architectural distortion or cluster of microcalcifications is seen . A linear scar marker overlies the upper outer quadrant of the left breast. There is a stable merlyn uping of punctate microcalcifications in the medial right breast, that appears similar dating back to at least 2009, therefore likely benign. There are mild vascular calcifications bilaterally. IMPRESSION: ACR BI-RADS CATEGORY 1: NEGATIVE There is no mammographic evidence of malignancy. A 1 year screening mammogram is recommended. The pa tient will receive written notification of the results. Approximately 10% of breast cancers are not detected with mammography. A negative mammographic report should not delay biopsy if a clinically suggestive mass is present. Vee Jeong M.D. ay/:07/29/2017 13:59:42 [employer] Yard Worker: Andria Lutz, [facility] letter sent: Normal 1/2 BI-RADS Code: ACR BI-RADS Category 1: Negative
== END | disposition home or self-care (01) ==
LOC: C.MAMM 10:37
PROVIDERS: ATTEND Nurse Practitioner
DX: Z12.31 Encounter for screening mammogram for malignant neoplasm of breast (principal)

== ENCOUNTER → 2017-10-06 | Outpatient (CLI) | payer OTHER | END | disposition home or self-care (01) | LOC: C.LAB 17:12 | PROVIDERS: ATTEND Internal Medicine Endocrinology, Diabetes & Metabolism | DX: C73 Malignant neoplasm of thyroid gland (principal); E89.0 Postprocedural hypothyroidism ==

== ENCOUNTER → 2018-01-06 | Outpatient (CLI) | payer OTHER ==
--- NOTE | 2018-01-06 07:35 | DIAGNOSTIC IMAGING REPORT ---
ULTRASOUND SOFT TISSUES NECK CLINICAL HISTORY: Thyroid cancer status post thyroidectomy. COMPARISON STUDY: Ultrasound of the neck dated 04/01/2017. TECHNIQUE: Real-time, grayscale, and color flow sonography of the soft tissues of the neck is performed to assess the thyroid bed. Images are reviewed in the transverse and longitudinal planes. FINDINGS: The thyroid gland is surgically absent. There is unchanged appearance of a hyperechoic nodule in the right thyroidectomy bed. This measures 0.8 x 0.6 x 0.6 cm, and has not significant changed from the 04/01/2017 examination. Internal flow is shown on color imaging. No residual tissue is identified in the left thyroid bed. No regional adenopathy is seen. IMPRESSION: There is unchanged appearance of a subcentimeter focus of nodularity within the right thyroid bed. This is indeterminant and may represent residual thyroid parenchyma. If clinically warranted this could be further assessed with fine-needle aspiration. Alternatively, continued sonographic follow-up could be considered. Electronically signed by: Tim Berry M.D. 01/06/2018 7:34 AM Dictated Date/Time: 01/06/2018 7:31 AM
== END | disposition home or self-care (01) ==
LOC: C.ULTR 06:30
PROVIDERS: ATTEND Internal Medicine Endocrinology, Diabetes & Metabolism
DX: C73 Malignant neoplasm of thyroid gland (principal)

== ENCOUNTER → 2018-01-19 | Outpatient (CLI) | payer OTHER | END | disposition home or self-care (01) | LOC: C.LAB 17:25 | PROVIDERS: ATTEND Internal Medicine Endocrinology, Diabetes & Metabolism | DX: C73 Malignant neoplasm of thyroid gland (principal) ==